=== PATIENT | male | born 2000 | race African-American/Black ===

== ENCOUNTER 2018-09-07 14:44 | Emergency (ER) | payer SELFPAY ==
[~2018-09-07] VITALS: Ht 175.3 cm; Wt 99.8 kg
--- NOTE | 2018-09-07 14:54 | NUR ---
patient presented to the ER BIBRA 860 c/o hiccups x 3 days. On room air, breathing evenly and unlabored. Denies any pain at this time. kept comfortable. will continue to monitor accordingly.
[2018-09-07] MEDS ORDERED: HALOPERIDOL LACTATE INJ 5 MG/ML VIAL IM ONE (16:00)
[2018-09-07] MEDS ORDERED: HALOPERIDOL LACTATE INJ 5 MG/ML VIAL ONE (16:00)
[2018-09-07] MEDS ORDERED: GUAIFENESIN 300 MG/15 ML UDC PO ONE (17:30)
[2018-09-07 17:53] VITALS: BP 132/84
--- NOTE | 2018-09-07 17:53 | NUR ---
Patient discharged to home in stable condition. Written and verbal after care instructions given. Patient verbalizes understanding of instruction.
== END 2018-09-07 17:54 | disposition home or self-care (01) ==
LOC: ER 14:51
DX: R06.6 Hiccough (principal)
CPT/HCPCS: J1630; J3230